=== PATIENT | female | born 1955 | race American Indian/Alaskan Native ===

== ENCOUNTER 2019-06-07 04:46 | Emergency (ER) | payer MEDICAID ==
[2019-06-07 06:09] LABS: Eosinophils # (Auto) 0.2 K/mm3 (0.0-0.4); Eosinophils % (Auto) 3.8 % (0.0-4.3); Hematocrit 38.3 % (30.3-42.9); Hemoglobin 12.7 gm/dl (10.1-14.3); Lymphocytes # (Auto) 1.5 K/mm3 (1.2-5.4); Lymphocytes % (Auto) 32.8 % (13.4-35.0); Mean Corpuscular HGB Conc 33 % (30-34); Mean Corpuscular Volume 90 fl (79-97); Monocytes # (Auto) 0.3 K/mm3 (0.0-0.8); Monocytes % (Auto) 7.5 % (0.0-7.3); Platelet Count 187 K/mm3 (140-440); Red Blood Count 4.25 M/mm3 (3.65-5.03); Red Cell Distribution Width 13.9 % (13.2-15.2)
[2019-06-07 06:21] LABS: BUN/Creatinine Ratio 20; Blood Urea Nitrogen 14 mg/dL (7-17); Calcium 9.2 mg/dL (8.4-10.2); Hemolysis Index 22
--- NOTE | 2019-06-07 06:32 | XRay Report ---
CHEST 1 VIEW, 06/07/2019 5:52 AM CLINICAL INFORMATION/INDICATION: Chest pain COMPARISON: None FINDINGS: SUPPORT DEVICES: None. HEART: The cardiac silhouette is normal in size. LUNGS/PLEURA: The lungs are clear of focal airspace disease or significant pleural effusion. ADDITIONAL FINDINGS: No additional acute findings. IMPRESSION: 1. No evidence of acute cardiopulmonary process. Signer Name: Catie Sin MD Signed: 06/07/2019 6:28 AM Workstation Name: [id number]
[2019-06-07] MEDS ORDERED: IBUPROFEN 800 MG TAB PO ONE (10:43)
[2019-06-07] MEDS ORDERED: predniSONE 20 MG TAB PO ONE (10:43)
[2019-06-07] MEDS ORDERED: ALBUTEROL 2.5 MG/3 ML NEBU IH ONE (10:43)
--- NOTE | 2019-06-07 10:44 | Emergency Department Report ---
Minor Respiratory - HPI Chief Complaint: Dyspnea/Respdistress Stated Complaint: CHRISSY, COUGH Time Seen by Provider: 06/07/19 10:41 Duration: 5 Days Pain Location: Chest Severity: mild Minor Respiratory: Yes Sore Throat, Yes Able to Tolerate Fluids, Yes Cough, No Rhinorrhea, No Ear Pain, No Sick Contacts, No Hemoptysis, No Chest Pain, No Shortness of Breath, No Fever Other History: 63 YO AA FEMALE COMES TO ER WITH COUGH AND CONGESTION FOR 2 WEEKS BUT LAST NIGHT HER SYMPTOMS INCREASED. SHE REPORTS COUGH AND CHILLS. ED Review of Systems ROS: Stated complaint: CHRISSY, COUGH Other details as noted in HPI Comment: All other systems reviewed and negative ED Past Medical Hx - Past Medical History Previous Medical History?: Yes Hx Congestive Heart Failure: Yes ("states Fluid around my heart") Hx Headaches / Migraines: Yes Additional medical history: High Cholesterol - Surgical History Past Surgical History?: Yes Additional Surgical History: Bilateral Knee Replacement, Tonsillectomy, Left Ear surgery, Surgery of the Intestines - Family History Family history: no significant - Social History Smoking Status: Former Smoker - Medications Home Medications: Home Medications Medication Instructions Recorded Confirmed Last Taken Type ALBUTEROL Inhaler (OR & NICU) 2 puff IH QID PRN #1 inhalation 06/07/19 Unknown Rx [ProAir HFA Inhaler] Benzonatate [Tessalon Perles] 100 mg PO Q12H PRN #20 capsule 06/07/19 Unknown Rx Fluticasone [Flonase] 1 spray NS QDAY #1 bottle 06/07/19 Unknown Rx predniSONE [Deltasone] 20 mg PO DAILY #5 tablet 06/07/19 Unknown Rx Minor Respiratory Exam - Exam General: Vital signs noted. No distress. Alert and acting appropriately. HEENT: Yes Moist Mucous Membranes, No Pharyngeal Erythema, No Pharyngeal Exudate s, No Rhinorrhea, No Conjuctival Injection, No Frontal Tenderness, No Maxillary Tenderness Ear: Neither TM Bulge, Neither TM Erythema, Neither EAC Pain, Neither EAC Discharge Neck: Yes Supple, No Adenopathy Lungs: Yes Good Air Exchange, Yes Wheezes, No Ronchi, No Stridor, No Cough, No Labored Respirations, No Retractions, No Use of Accessory Muscles, No Other Abnormal Lung Sounds Heart: Yes Regular, No Murmur Abdomen: Yes Normal Bowel Sounds, No Tenderness, No Peritoneal Signs Skin: No Rash, No Edema Neurologic: Alert and oriented, no deficits. Musculoskeletal: Unremarkable. ED Course Vital Signs 06/07/19 04:53 Temperature 98.5 F Pulse Rate 69 Respiratory 18 Rate Blood Pressure 144/77 O2 Sat by Pulse 100 Oximetry ED Medical Decision Making - Lab Data Result diagrams: 06/07/19 05:56 06/07/19 05:56 - EKG Data EKG shows normal: sinus rhythm Rate: normal - EKG Data When compared to previous EKG there are: no significant change Interpretation: no acute changes - Radiology Data Radiology results: report reviewed, image reviewed - Medical Decision Making Labs 06/07/19 06/07/19 06/07/19 05:56 05:56 05:56 WBC 4.6 RBC 4.25 Hgb 12.7 Hct 38.3 MCV 90 MCH 30 MCHC 33 RDW 13.9 Plt Count 187 Lymph % (Auto) 32.8 [place] % (Auto) 7.5 H Eos % (Auto) 3.8 Baso % (Auto) 1.0 Lymph # 1.5 [place] # 0.3 Eos # 0.2 Baso # 0.0 Seg Neutrophils % 54.9 Seg Neutrophils # 2.5 Sodium 142 Potassium 4.2 Chloride 107.9 H Carbon Dioxide 24 Anion Gap 14 BUN 14 Creatinine 0.7 Estimated GFR > 60 BUN/Creatinine Ratio 20 Glucose 117 H Calcium 9.2 Troponin T < 0.010 NT-Pro-B Natriuret Pep 119.5 06/07/19 09:49 WBC RBC Hgb Hct MCV MCH MCHC RDW Plt Count Lymph % (Auto) [place] % (Auto) Eos % (Auto) Baso % (Auto) Lymph # [place] # Eos # Baso # Seg Neutrophils % Seg Neutrophils # Sodium Potassium Chloride Carbon Dioxide Anion Gap BUN Creatinine Estimated GFR BUN/Creatinine Ratio Glucose Calcium Troponin T < 0.010 NT-Pro-B Natriuret Pep Vital Signs 06/07/19 06/07/19 04:53 11:12 Temperature 98.5 F Pulse Rate 69 Pulse Rate [ 63 Bilateral] Respiratory 18 Rate Respiratory 18 Rate [Bilateral ] Blood Pressure 144/77 O2 Sat by Pulse 100 Oximetry MEDICATED IN ER XRAY NOTED 12 LEAD NOTED TROP NEG BNP NORMAL DC HOME WITH RX AND PCP FOLLOW UP NON ILL NON TOXIC NO FEVER AMBULATORY TAKING PO - Differential Diagnosis URTI/BRONCHITIS/PNA Critical care attestation.: If time is entered above; I have spent that time in minutes in the direct care of this critically ill patient, excluding procedure time. ED Disposition Clinical Impression: Bronchitis Disposition: DC-01 TO HOME OR SELFCARE Is pt being admited?: No Does the pt Need Aspirin: No Condition: Stable Instructions: Acute Bronchitis (ED) Prescriptions: predniSONE [Deltasone] 20 mg PO DAILY #5 tablet Fluticasone [Flonase] 1 spray NS QDAY #1 bottle ALBUTEROL Inhaler (OR & NICU) [ProAir HFA Inhaler] 2 puff IH QID PRN #1 inhalation PRN Reason: Shortness Of Breath Benzonatate [Tessalon Perles] 100 mg PO Q12H PRN #20 capsule PRN Reason: Cough Referrals: MERLIN ROCHA MD [Staff Physician] - 3-5 Days Time of Disposition: 11:27
[2019-06-07 11:49] VITALS: BP 140/76
== END 2019-06-07 11:48 | disposition home or self-care (01) ==
LOC: ED 04:46
DX: J40 Bronchitis, not specified as acute or chronic (principal)
CPT/HCPCS: 36415; 71045; 80048; 83880; 84484; 85025; 93005; 93010; 94640; 99284; J7512; 94644

== ENCOUNTER 2019-08-09 16:18 | Emergency (ER) | payer OTHER, MEDICAID ==
[2019-08-09 16:53] VITALS: BP 123/60
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
[2019-08-09] MEDS ORDERED: ACETAMINOPHEN 500 MG TAB PO ONE (19:14)
[2019-08-09] MEDS ORDERED: IBUPROFEN 600 MG TAB PO ONE (19:14)
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
== END 2019-08-09 20:15 | disposition home or self-care (01) ==
LOC: ED 16:18
DX: M62.830 Muscle spasm of back (principal); M62.838 Other muscle spasm; M25.562 Pain in left knee; M25.561 Pain in right knee; E78.00 Pure hypercholesterolemia, unspecified; G43.909 Migraine, unspecified, not intractable, without status migrainosus; I50.9 Heart failure, unspecified; Z98.890 Other specified postprocedural states; Z90.49 Acquired absence of other specified parts of digestive tract; Z87.891 Personal history of nicotine dependence; Z79.899 Other long term (current) drug therapy; V49.49XA Driver injured in collision with other motor vehicles in traffic accident, initial encounter; Y93.89 Activity, other specified; Y92.410 Unspecified street and highway as the place of occurrence of the external cause; Y99.8 Other external cause status
CPT/HCPCS: 72040; 72100; 99283

== ENCOUNTER 2019-08-10 20:43 | Emergency (ER) | payer MEDICAID, OTHER ==
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
--- NOTE | 2019-08-10 23:11 | Cat Scan Report ---
CT HEAD/BRAIN WO CON INDICATION / CLINICAL INFORMATION: Headache and dizziness. TECHNIQUE: All CT scans at this location are performed using CT dose reduction for ALARA by means of automated e xposure control. COMPARISON: None available. FINDINGS: The ventricular system is normal in size and configuration. No focal lesion or mass effect is seen. T here is no evidence of intracranial hemorrhage or major vessel occlusion. The calvarium is intact. Th e visualized paranasal sinuses and mastoid air cells are clear. IMPRESSION: No acute abnormality. Signer Name: Niranjan Camejo MD Signed: 08/10/2019 11:06 PM Workstation Name: [id number]
[2019-08-10 23:20] VITALS: BP 127/63
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
[2019-08-11] MEDS ORDERED: traMADol 50 MG TAB PO STA (00:12)
== END 2019-08-11 00:36 | disposition home or self-care (01) ==
LOC: ED 20:43
DX: F07.81 Postconcussional syndrome (principal); M62.838 Other muscle spasm; I50.9 Heart failure, unspecified; Z98.890 Other specified postprocedural states; Z79.1 Long term (current) use of non-steroidal anti-inflammatories (NSAID); Z79.899 Other long term (current) drug therapy; V49.69XA Unspecified car occupant injured in collision with other motor vehicles in traffic accident, initial encounter; Y93.89 Activity, other specified; Y92.488 Other paved roadways as the place of occurrence of the external cause; Y99.8 Other external cause status
CPT/HCPCS: 70450